=== PATIENT | male | born 1990 | race African-American/Black ===

== ENCOUNTER 2017-08-20 13:15 | Emergency (ER) | payer SELFPAY ==
[~2017-08-20] VITALS: Ht 175.3 cm; Wt 73.0 kg
[2017-08-20 14:33] VITALS: BP 131/89
== END 2017-08-20 15:48 | disposition home or self-care (01) ==
LOC: ER 13:15
DX: J06.9 Acute upper respiratory infection, unspecified (principal); F17.200 Nicotine dependence, unspecified, uncomplicated; J45.909 Unspecified asthma, uncomplicated; F12.10 Cannabis abuse, uncomplicated
CPT/HCPCS: 99282

== ENCOUNTER 2017-09-03 11:28 | Emergency (ER) | payer SELFPAY ==
[~2017-09-03] VITALS: Ht 180.3 cm; Wt 73.0 kg
[2017-09-03 11:52] VITALS: BP 153/99
== END 2017-09-03 12:11 | disposition home or self-care (01) ==
LOC: ER 11:34
DX: Z56.6 Other physical and mental strain related to work (principal); R51 Headache; F17.200 Nicotine dependence, unspecified, uncomplicated; F12.10 Cannabis abuse, uncomplicated
CPT/HCPCS: 99281

== ENCOUNTER 2019-05-31 18:10 | Emergency (ER) | payer SELFPAY | END 2019-05-31 19:07 | disposition left against medical advice (07) | LOC: ER 18:10 | DX: Z53.21 Procedure and treatment not carried out due to patient leaving prior to being seen by health care provider (principal) ==